=== PATIENT | female | born 1970 | race Caucasian/White ===

== ENCOUNTER → 2017-07-02 | Outpatient (CLI) | payer OTHER ==
[~2017-07-02] MED LIST: LIDOCAINE 1%, 20ML ONE; MULTIHANCE 529 MG/ML, 10ML IV ONE; OMNIPAQUE 300 MG/ML, 10ML VIAL ONE
== END ==
LOC: CFH 13:45
PROVIDERS: ATTEND Physician Assistant
DX: M25.852 Other specified joint disorders, left hip (principal)
CPT/HCPCS: 73525; 73722; A9577; J3490; Q9967

== ENCOUNTER → 2017-08-14 | Outpatient (CLI) | payer OTHER ==
[~2017-08-14] MED LIST changes: -LIDOCAINE 1%, 20ML ONE; -MULTIHANCE 529 MG/ML, 10ML IV ONE; +NONE PER PT; -OMNIPAQUE 300 MG/ML, 10ML VIAL ONE
== END ==
LOC: STAR 12:41
PROVIDERS: ATTEND Orthopaedic Surgery
DX: Z02.9 Encounter for administrative examinations, unspecified (principal)

== ENCOUNTER 2017-08-18 06:14 | Day surgery (SDC) | payer OTHER ==
[~2017-08-18] VITALS: Ht 162.6 cm; Wt 61.5 kg
[2017-08-18 06:50] VITALS: BP 143/92
[2017-08-18] MEDS ORDERED: LIDOCAINE 1%, 2ML SQ PRN (07:00)
[2017-08-18] MEDS ORDERED: EPINEPHRINE TOPICAL SOLN 1 MG/ML, 30ML ONE (07:01)
[2017-08-18] MEDS ORDERED: ROPIvacaine/PF 0.5%, 30 ML ONE (07:01)
[2017-08-18 07:17] LABS: HCG UR SG 1.029 (1.003-1.030)
[2017-08-18] MEDS ORDERED: MIDAZOLAM 1 MG/ML, 2ML ONE (07:48)
[2017-08-18] MEDS ORDERED: FENTANYL PF 250 MCG/5ML ONE (07:49)
[2017-08-18] MEDS ORDERED: PROPOFOL 10 MG/ML, 20ML ONE (07:50)
[2017-08-18] MEDS ORDERED: ROCURONIUM 10 MG/ML,10ML ONE (07:50)
[2017-08-18] MEDS ORDERED: NEOSTIGMINE 1 MG/ML, 10ML ONE (07:51)
[2017-08-18] MEDS ORDERED: GLYCOPYRROLATE 0.4 MG/2 ML, 2ML ONE (07:51)
[2017-08-18] MEDS ORDERED: SODIUM CHLORIDE 0.9% PF 10ML ONE (07:52)
[2017-08-18] MEDS ORDERED: CEFAZOLIN 1,000 MG ONE ×2 (07:52→07:53)
[2017-08-18] MEDS ORDERED: ONDANSETRON 2MG/ML, 2ML ONE ×2 (07:56)
[2017-08-18] MEDS ORDERED: DEXAMETHASONE 4 MG/ML, 1ML ONE ×2 (07:56)
[2017-08-18] MEDS: LACTATED RINGERS 1,000 ML IV SCH ×2 (08:15→09:32)
[2017-08-18] MEDS ORDERED: MEPERIDINE/PF 25MG/0.5ML IVPush PRN (08:30)
[2017-08-18] MEDS ORDERED: LABETALOL 5MG/ML, 20ML IV PRN (08:30)
[2017-08-18] MEDS ORDERED: PROMETHAZINE 12.5 MG SUPP PR PRN (08:30)
[2017-08-18] MEDS ORDERED: FENTANYL PF 100 MCG/2ML IV PRN (08:30)
[2017-08-18] MEDS ORDERED: ACETAMINOPHEN 325 MG TABLET PO PRN (08:30)
[2017-08-18] MEDS ORDERED: ONDANSETRON 2MG/ML, 2ML IVPush PRN (08:30)
[2017-08-18] MEDS ORDERED: OXYcodone 5 MG/5 ML ORAL.SOL UDC PO PRN (08:30)
[2017-08-18] MEDS ORDERED: hydrALAzine 20 MG/ML, 1ML IV PRN (08:30)
[2017-08-18] MEDS ORDERED: PROPOFOL 50 ML ONE ×2 (09:01→09:02)
[2017-08-18] MEDS ORDERED: ACETAMINOPHEN 650 MG/20.3 ML UDC ONE (09:50)
[2017-08-18] MEDS ORDERED: HYDROmorphone 2 MG/ML, 1ML ONE (09:51)
[2017-08-18] MEDS ORDERED: OXYcodone 5 MG/5 ML ORAL.SOL UDC ONE (09:51)
[2017-08-18] MEDS: HYDROmorphone 1 MG/ML, 1ML IV PRN ×2 (09:52→10:13)
[2017-08-18] MEDS ORDERED: OXYcodone/APAP 5/325MG TABLET PO PRN (15:00)
== END 2017-08-18 12:55 ==
LOC: OUT 06:14
PROVIDERS: ATTEND Orthopaedic Surgery
DX: S73.192A Other sprain of left hip, initial encounter (principal); M25.852 Other specified joint disorders, left hip; M19.90 Unspecified osteoarthritis, unspecified site; X58.XXXA Exposure to other specified factors, initial encounter; Y93.9 Activity, unspecified; Y92.9 Unspecified place or not applicable
CPT/HCPCS: 29862; 29863; 73501; 76001; 81025; J0690; J1100; J1170; J2250; J2405; J2704; J2710; J2795; J3010; J7120